=== PATIENT | female | born 1980 | race Caucasian/White ===

== ENCOUNTER 2022-12-01 14:17 | Emergency (ER) | payer BC ==
[~2022-12-01] VITALS: Ht 172.7 cm; Wt 72.6 kg
== END 2022-12-01 17:27 | disposition home or self-care (01) ==
LOC: ER 14:17
DX: S92.511A Displaced fracture of proximal phalanx of right lesser toe(s), initial encounter for closed fracture (principal); W51.XXXA Accidental striking against or bumped into by another person, initial encounter; Y93.89 Activity, other specified; Y92.59 Other trade areas as the place of occurrence of the external cause